=== PATIENT | male | born 1960 | race Caucasian/White ===

== ENCOUNTER 2018-01-01 06:22 | Inpatient (IN) | payer OTHER ==
[~2018-01-01] VITALS: Ht 175.3 cm; Wt 112.0 kg
[2018-01-01] MEDS ORDERED: GABAPENTIN300 M4 PO (06:36)
[2018-01-01] MEDS ORDERED: SYNTHROID0.05 MG PO (06:37)
[2018-01-01] MEDS ORDERED: HYDRALAZINE HC100 MG PO (06:38)
[2018-01-01] MEDS ORDERED: ISOSORBIDE MONO30 MG PO (06:38)
[2018-01-01] MEDS ORDERED: ATORVASTATIN CA40 M1 PO (06:39)
[2018-01-01] MEDS ORDERED: CITALOPRAM HYDR20 M1 PO (06:39)
[2018-01-01] MEDS ORDERED: GLIMEPIRIDE4 M1 PO (06:39)
[2018-01-01] MEDS ORDERED: CARVEDILOL25 M1 PO (06:40)
[2018-01-01] MEDS ORDERED: CLONIDINE HCL0.2 MG PO (06:40)
[2018-01-01] MEDS ORDERED: PANTOPRAZOLE SO40 M1 PO (06:40)
[2018-01-01] MEDS ORDERED: FERROUS SULFAT325 M2 (06:41)
[2018-01-01] MEDS ORDERED: TORSEMIDE100 MG PO (06:41)
[2018-01-01] MEDS ORDERED: PRO30 PO (06:43)
[2018-01-01] MEDS ORDERED: MAGNESIUM OXID400 MG PO (06:43)
[2018-01-01] MEDS ORDERED: CLOPIDOGREL75 M1 PO (06:44)
[2018-01-01] MEDS ORDERED: JANUVIA100 M1 PO (06:46)
[2018-01-01] MEDS ORDERED: VITAMIN D50000 I4 PO (06:46)
[2018-01-01] MEDS ORDERED: FLORASTOR1 CAP PO (06:47)
[2018-01-01] MEDS ORDERED: CALCITRIOL0.25 MCG PO (06:50)
[2018-01-01 07:52] LABS: BASOPHIL % 0.3 % (0-2)
[2018-01-01 08:08] LABS: PLATELET COUNT 232 x10^3mcL (130-400); RED CELL DISTRIBUTION WIDTH 13.6 % (11.5-14.5)
[2018-01-01 08:14] LABS: BILIRUBIN TOTAL 0.5 mg/dL (0.20-1.00); CALCIUM 8.5 mg/dL (8.5-10.1); CARBON DIOXIDE 21.4 mmol/L (21-32); CREATININE SERUM 2.7 mg/dL (0.7-1.3); POTASSIUM SERUM 4.4 mmol/L (3.5-5.1)
[2018-01-01 08:17] LABS: ALBUMIN 3.1 g/dL (3.4-5.0)
[2018-01-01 08:22] LABS: CK-MB 1.7 ng/mL (0-3.6)
[2018-01-01 08:25] LABS: T3 TOTAL 0.62 ng/mL
[2018-01-01 08:35] LABS: FREE T4 1.12 ng/dL (0.76-1.46); FREE THYROXINE INDEX 2.9 ug/dL (1.4-4.5); T4(THYROXINE) 7.9 ug/dL (4.7-13.3)
[2018-01-01 09:10] LABS: C REACTIVE PROTEIN 13.6 mg/dL (<=0.9)
[2018-01-01 10:13] VITALS: BP 151/64
[2018-01-01 10:27] LABS: ERYTHROCYTE SED RATE 116 mm/hr (0-20)
[2018-01-01 11:18] VITALS: BP 141/72
[2018-01-01 12:04] LABS: MAGNESIUM 2.3 mg/dL (1.8-2.4); PHOSPHOROUS 3.4 mg/dL (2.5-4.9)
[2018-01-01 13:19] LABS: microscopic required? YES; urine erythrocyte TRACE (NEGATIVE)
[2018-01-01 16:00] VITALS: BP 145/91
[2018-01-01 19:35] VITALS: BP 111/61
[2018-01-01 19:47] VITALS: Ht 175.3 cm; Wt 112.0 kg
[2018-01-01 23:15] VITALS: BP 98/53
[2018-01-02 03:34] VITALS: BP 109/64
[2018-01-02 04:48] LABS: CALCIUM 8.3 mg/dL (8.5-10.1); CARBON DIOXIDE 20.4 mmol/L (21-32); CREATININE SERUM 3.6 mg/dL (0.7-1.3); POTASSIUM SERUM 4.3 mmol/L (3.5-5.1)
[2018-01-02 04:57] LABS: RED CELL DISTRIBUTION WIDTH 13.2 % (11.5-14.5); TOTAL IRON BINDING CAPACITY 316 ug/dL (250-450)
[2018-01-02 05:02] LABS: IRON 25 ug/dL (65-170)
[2018-01-02 05:08] LABS: BASOPHIL % 0.3 % (0-2); PLATELET COUNT 213 x10^3mcL (130-400)
[2018-01-02 06:00] VITALS: BP 120/38
[2018-01-02 07:36] VITALS: BP 128/67
[2018-01-02 12:50] VITALS: BP 105/51
[2018-01-02 16:56] VITALS: BP 132/66
[2018-01-02 19:59] VITALS: BP 121/56
[2018-01-03 00:14] LABS: CREATININE UR 95.2 mg/dL
[2018-01-03 05:26] VITALS: BP 123/64
[2018-01-03 06:20] LABS: CALCIUM 7.9 mg/dL (8.5-10.1); CARBON DIOXIDE 20.2 mmol/L (21-32); MAGNESIUM 2.5 mg/dL (1.8-2.4); PHOSPHOROUS 4.9 mg/dL (2.5-4.9); POTASSIUM SERUM 4.1 mmol/L (3.5-5.1)
[2018-01-03 06:28] LABS: CREATININE SERUM 4.2 mg/dL (0.7-1.3)
[2018-01-03 07:08] LABS: BASOPHIL % 0.5 % (0-2); PLATELET COUNT 184 x10^3mcL (130-400); RED CELL DISTRIBUTION WIDTH 13.9 % (11.5-14.5)
[2018-01-03 08:32] VITALS: BP 111/57
[2018-01-03 13:00] VITALS: BP 126/63
[2018-01-03 13:16] LABS: rbc morphology (normal/abnorm) ABNORMAL (NORMAL)
[2018-01-03 13:49] LABS: rbc morphology (normal/abnorm) ABNORMAL (NORMAL)
[2018-01-03 17:00] VITALS: BP 130/63
[2018-01-03 20:44] VITALS: BP 153/74
[2018-01-04 05:30] VITALS: BP 135/65
[2018-01-04 06:53] LABS: BASOPHIL % 0.2 % (0-2); PLATELET COUNT 213 x10^3mcL (130-400); RED CELL DISTRIBUTION WIDTH 14.4 % (11.5-14.5)
[2018-01-04 07:23] LABS: CALCIUM 8.3 mg/dL (8.5-10.1); CARBON DIOXIDE 21.5 mmol/L (21-32); CREATININE SERUM 3.8 mg/dL (0.7-1.3); POTASSIUM SERUM 4.5 mmol/L (3.5-5.1)
[2018-01-04 12:32] VITALS: BP 166/86
[2018-01-04 12:54] VITALS: BP 127/59
[2018-01-04 17:20] VITALS: BP 169/83
[2018-01-04 20:47] VITALS: BP 150/80
[2018-01-05 02:33] LABS: microalbumin:creatinine ratio 555.4 (0.0-30.0)
[2018-01-05 05:05] VITALS: BP 123/73
[2018-01-05 06:44] LABS: BASOPHIL % 0.3 % (0-2); PLATELET COUNT 231 x10^3mcL (130-400); RED CELL DISTRIBUTION WIDTH 13.7 % (11.5-14.5)
[2018-01-05 07:00] LABS: CALCIUM 8.6 mg/dL (8.5-10.1); CARBON DIOXIDE 22.5 mmol/L (21-32); CREATININE SERUM 3.5 mg/dL (0.7-1.3); PHOSPHOROUS 5.1 mg/dL (2.5-4.9); POTASSIUM SERUM 4.3 mmol/L (3.5-5.1)
[2018-01-05 09:20] VITALS: BP 196/68
[2018-01-05 12:54] VITALS: BP 133/61
[2018-01-05 17:33] VITALS: BP 157/73
[2018-01-05 20:16] VITALS: BP 143/64
[2018-01-06 05:34] VITALS: BP 165/86
[2018-01-06 06:44] LABS: BASOPHIL % 0.6 % (0-2); PLATELET COUNT 268 x10^3mcL (130-400); RED CELL DISTRIBUTION WIDTH 14.2 % (11.5-14.5)
[2018-01-06 06:53] LABS: CARBON DIOXIDE 23.8 mmol/L (21-32); CREATININE SERUM 3.2 mg/dL (0.7-1.3); POTASSIUM SERUM 3.9 mmol/L (3.5-5.1)
[2018-01-06 09:13] VITALS: BP 157/81
[2018-01-06 12:59] VITALS: BP 115/60
[2018-01-06 15:36] VITALS: BP 115/60
[2018-01-06] MEDS ORDERED: L40 PO (15:46)
[2018-01-06] MEDS ORDERED: ADA30 PO (15:46)
[2018-01-06] MEDS ORDERED: AUG500 PO (15:50)
[2018-01-06] MEDS ORDERED: PRO10I SQ (15:57)
== END 2018-01-06 18:20 | disposition home or self-care (01) | DRG 853 ==
LOC: ED 06:22 → DU 09:42 → IC 09:42 → DU 01-02 12:45
PROVIDERS: Internal Medicine; Internal Medicine Nephrology; Specialist
DX: A41.9 Sepsis, unspecified organism (principal); J96.01 Acute respiratory failure with hypoxia; J69.0 Pneumonitis due to inhalation of food and vomit; N18.6 End stage renal disease; J44.1 Chronic obstructive pulmonary disease with (acute) exacerbation; I13.0 Hypertensive heart and chronic kidney disease with heart failure and stage 1 through stage 4 chronic kidney disease, or unspecified chronic kidney disease; N17.9 Acute kidney failure, unspecified; E44.0 Moderate protein-calorie malnutrition; R65.20 Severe sepsis without septic shock; E11.22 Type 2 diabetes mellitus with diabetic chronic kidney disease; E11.21 Type 2 diabetes mellitus with diabetic nephropathy; E11.65 Type 2 diabetes mellitus with hyperglycemia; E11.42 Type 2 diabetes mellitus with diabetic polyneuropathy; E11.51 Type 2 diabetes mellitus with diabetic peripheral angiopathy without gangrene; I50.9 Heart failure, unspecified; N18.9 Chronic kidney disease, unspecified; E03.9 Hypothyroidism, unspecified; D63.1 Anemia in chronic kidney disease; G47.33 Obstructive sleep apnea (adult) (pediatric); F17.210 Nicotine dependence, cigarettes, uncomplicated; Z68.37 Body mass index [BMI] 37.0-37.9, adult; Z99.2 Dependence on renal dialysis; Z79.84 Long term (current) use of oral hypoglycemic drugs
CPT/HCPCS: 36600; 83880; 84439; 94150; 97535-GP; C1758; C9113; J0885-EC; J1644; J1940; J2001; J2060; J2250; J2543; J3010; J3490; J7030; J7040; J7050; J7613; J7620; J7644; P9016; Q0092; Q9967

== ENCOUNTER 2018-03-07 17:49 | Emergency (ER) | payer OTHER ==
[~2018-03-07] VITALS: Ht 172.7 cm; Wt 102.1 kg
[~2018-03-07 17:49] MED LIST: ADA30 PO; ATORVASTATIN CA40 M1 PO; AUG500 PO; CALCITRIOL0.25 MCG PO; CARVEDILOL25 M1 PO; CITALOPRAM HYDR20 M1 PO; CLONIDINE HCL0.2 MG PO; CLOPIDOGREL75 M1 PO; FERROUS SULFAT325 M2; FLORASTOR1 CAP PO; GABAPENTIN300 M4 PO; GLIMEPIRIDE4 M1 PO; HYDRALAZINE HC100 MG PO; ISOSORBIDE MONO30 MG PO; JANUVIA100 M1 PO; L40 PO; MAGNESIUM OXID400 MG PO; PANTOPRAZOLE SO40 M1 PO; PRO10I SQ; PRO30 PO; SYNTHROID0.05 MG PO; TORSEMIDE100 MG PO; VITAMIN D50000 I4 PO
[2018-03-07 18:09] VITALS: Ht 172.7 cm; Wt 102.1 kg
[2018-03-07 20:27] LABS: PLATELET COUNT 261 x10^3mcL (130-400); RED CELL DISTRIBUTION WIDTH 14.1 % (11.5-14.5)
[2018-03-07 20:35] LABS: ALBUMIN 3.6 g/dL (3.4-5.0); BILIRUBIN TOTAL 0.3 mg/dL (0.20-1.00); CALCIUM 8.7 mg/dL (8.5-10.1); POTASSIUM SERUM 3.4 mmol/L (3.5-5.1)
[2018-03-07 20:43] LABS: CREATININE SERUM 4.9 mg/dL (0.7-1.3)
[2018-03-07 20:46] LABS: BAND NEUTROPHIL 0 % (0-10); BASOPHIL 0 % (0-2); MONOCYTE 6 % (0-7); SEGMENTED NEUTROPHILS 69 % (37-75)
[2018-03-07 20:47] LABS: rbc morphology (normal/abnorm) ABNORMAL (NORMAL)
[2018-03-07 22:15] VITALS: BP 122/59
== END 2018-03-07 22:15 | disposition home or self-care (01) ==
LOC: ED 17:49
PROVIDERS: Emergency Medicine
DX: E11.22 Type 2 diabetes mellitus with diabetic chronic kidney disease (principal); I12.9 Hypertensive chronic kidney disease with stage 1 through stage 4 chronic kidney disease, or unspecified chronic kidney disease; N18.9 Chronic kidney disease, unspecified; D64.9 Anemia, unspecified; E03.9 Hypothyroidism, unspecified; Z88.2 Allergy status to sulfonamides
CPT/HCPCS: J2405; J3490; J7030

== ENCOUNTER 2018-05-17 11:17 | Inpatient (IN) | payer OTHER ==
[~2018-05-17] VITALS: Ht 175.3 cm; Wt 101.0 kg
[2018-05-17 13:25] LABS: BASOPHIL % 0.5 % (0-2); PLATELET COUNT 341 x10^3mcL (130-400); RED CELL DISTRIBUTION WIDTH 14.4 % (11.5-14.5)
[2018-05-17 13:37] LABS: CALCIUM 7.8 mg/dL (8.5-10.1); CARBON DIOXIDE 17.9 mmol/L (21-32); CREATININE SERUM 3.1 mg/dL (0.7-1.3); POTASSIUM SERUM 3.7 mmol/L (3.5-5.1); TOTAL PROTEIN, SERUM 6.5 g/dL (6.4-8.2)
[2018-05-17 13:40] LABS: ALBUMIN 2.7 g/dL (3.4-5.0)
[2018-05-17 13:54] LABS: BILIRUBIN TOTAL 0.1 mg/dL (0.20-1.00)
[2018-05-17] MEDS ORDERED: SODIUM BICARBO650 MG PO (14:42)
[2018-05-17 15:41] VITALS: BP 144/75
[2018-05-17 15:47] VITALS: Ht 175.3 cm; Wt 101.0 kg
[2018-05-17 20:33] VITALS: BP 154/74
[2018-05-18 05:41] VITALS: BP 159/72
[2018-05-18 06:31] LABS: BASOPHIL % 0.6 % (0-2); PLATELET COUNT 330 x10^3mcL (130-400); RED CELL DISTRIBUTION WIDTH 14.5 % (11.5-14.5)
[2018-05-18 06:49] LABS: CALCIUM 7.7 mg/dL (8.5-10.1); CARBON DIOXIDE 17.1 mmol/L (21-32); CREATININE SERUM 2.8 mg/dL (0.7-1.3); POTASSIUM SERUM 3.6 mmol/L (3.5-5.1)
[2018-05-18 10:16] VITALS: BP 176/80
[2018-05-18 10:58] VITALS: BP 155/76
[2018-05-18 10:59] VITALS: BP 155/76
== END 2018-05-18 11:27 | disposition home or self-care (01) | DRG 684 ==
LOC: ED 11:17 → MU 14:10
PROVIDERS: Emergency Medicine; ADMIT Internal Medicine
DX: N17.9 Acute kidney failure, unspecified (principal); I10 Essential (primary) hypertension; E11.9 Type 2 diabetes mellitus without complications; K52.9 Noninfective gastroenteritis and colitis, unspecified; E03.9 Hypothyroidism, unspecified; Z88.2 Allergy status to sulfonamides
CPT/HCPCS: C9113; J3490; J7030; J7042